=== PATIENT | male | born 1985 | race Caucasian/White ===

== ENCOUNTER 2016-10-23 14:38 | Inpatient (IN) | payer BC, OTHER ==
[~2016-10-23] VITALS: Ht 182.9 cm; Wt 90.7 kg
[2016-10-23 16:16] VITALS: BP 119/64
[2016-10-23] MEDS ORDERED: MAG HYDROX/AL HYDROX/SIMETH 30 ML LIQUID UDC PO PRN (16:45)
[2016-10-23] MEDS ORDERED: IBUPROFEN 600 MG TABLET PO PRN (16:45)
[2016-10-23] MEDS ORDERED: LOPERAMIDE HCL 2 MG CAPSULE PO PRN ×2 (16:45)
[2016-10-23] MEDS ORDERED: MIRALAX 17 GM POWD.PACK PO PRN (16:45)
[2016-10-23] MEDS ORDERED: BUPRENORPHINE HCL 2 MG TAB.SUBL SL PRN (16:45)
[2016-10-23] MEDS ORDERED: CLONIDINE HCL 0.1 MG TABLET PO PRN (16:45)
[2016-10-23] MEDS ORDERED: ACETAMINOPHEN 325 MG TABLET PO PRN ×2 (16:45→17:45)
[2016-10-23] MEDS ORDERED: DICYCLOMINE HCL 20 MG TABLET PO PRN (16:45)
[2016-10-23] MEDS ORDERED: ONDANSETRON 4 MG/2 ML VIAL IM PRN (16:45)
[2016-10-23] MEDS ORDERED: ONDANSETRON ODT 4 MG TAB.RAPDIS SL PRN (16:45)
[2016-10-23] MEDS ORDERED: MAGNESIUM HYDROXIDE 30 ML LIQUID UDC PO PRN (16:45)
[2016-10-23 17:05] LABS: *AMPHETAMINE, URINE POSITIVE (NEGATIVE); *BARBITURATE, URINE POSITIVE (NEGATIVE); *CANNABINOID, URINE NEGATIVE (NEGATIVE); *COCCAINE, URINE POSITIVE (NEGATIVE); *OPIATE, URINE POSITIVE (NEGATIVE); *PHENCYCLIDINE SCREEN,URINE NEGATIVE (NEGATIVE)
[2016-10-23 17:24] LABS: BASOPHILS # (AUTO) 0.1 K/uL (0.0-8.0); EOSINOPHILS # (AUTO) 0.2 K/uL (0.0-0.7); EOSINOPHILS % (AUTO) 2.4 % (0.0-7.0); HEMATOCRIT 39.1 % (36.7-47.1); HEMOGLOBIN 13.4 g/dL (12.5-16.3); LYMPHOCYTES # (AUTO) 2.4 K/uL (20.0-40.0); LYMPHOCYTES % (AUTO) 34.8 % (20.5-51.5); MEAN CORPUSCULAR HEMOGLOBIN 31.2 uug (23.8-33.4); MEAN CORPUSCULAR HGB CONC 34 g/dL (32.5-36.3); MEAN CORPUSCULAR VOLUME 91.1 fL (73.0-96.2); MONOCYTES # (AUTO) 0.6 K/uL (2.0-10.0); MONOCYTES % (AUTO) 8.9 % (0.0-11.0); NEUTROPHILS # (AUTO) 3.5 K/uL (1.8-8.9); NEUTROPHILS % (AUTO) 52.9 % (38.5-71.5); PLATELET COUNT (AUTO) 266 K/uL (152-348); WHITE BLOOD COUNT (AUTO) 6.8 K/uL (3.6-10.2)
[2016-10-23 17:30] LABS: ETHANOL < 3 MG/DL (0-0)
--- NOTE | 2016-10-23 17:30 | NUR ---
ADMISSION Pt 33 y/o male admitted for heroin methamphetamine dependence. Pt alert and oriented to name, place, and time. Perrla. Skin warm and dry to touch. Respirations even and unlabored. Bilateral hand tremors noted slightly. Pt irritable during assessment. Pt noted with pressured speech at times during conversation. Pt also noted with eyes slightly closing at times during conversation. Pt also appears slighty disheveled. Initial cows=2. AQ=885/64 P=83 O2=95% @RA R=18 T=98.3 pain=0/10. Dr. Hernandez aware of admission with new orders for prn subutex per MD order for today. Pt oriented to room and unit. NKA. Pt states has no PCP. Full code. Regular diet. Bed on lowest position with side rails x2 up for safety. Call light within reach. substance hx: - HEROIN iv 1-2gm daily x2 months, last used on 10/23/16 @1100 0.5gm ( 13-14years total) - METHAMPHETAMINE iv 0.5gm daily x 2-3 weeks, last used on 10/22/16 0.5gm ( 8 years total) Pt denies any medical history and also denies any history of sz. tx hx: [facility] 06/2016
[2016-10-23 17:36] LABS: ALANINE AMINOTRANSFERASE 26 U/L (16-63); ALBUMIN 3.6 g/dL (3.4-5.0); ALKALINE PHOSPHATASE 63 U/L (50-136); ASPARTATE AMINOTRANSFERASE 25 U/L (15-37); BILIRUBIN,TOTAL 0.8 mg/dL (0.2-1.0); CALCIUM 8.9 mg/dL (8.5-10.1); CARBON DIOXIDE 31 mmol/L (21-32); CHLORIDE 102 mmol/L (98-107); CREATININE 1.1 mg/dL (0.6-1.3); GFR 78 mL/min (>60); GLUCOSE 114 mg/dL (74-106); MAGNESIUM 2.3 mg/dL (1.8-2.4); SODIUM SERUM 141 mmol/L (136-145); TOTAL PROTEIN, SERUM 7.1 g/dL (6.4-8.2); UREA NITROGEN, BLOOD 12 mg/dL (7-18)
[2016-10-23 18:05] LABS: HIV-1 p24 ANTIGEN NON REACTIVE (NONREACTIVE); HIV-1/2 ANTIBODY NON REACTIVE (NONREACTIVE)
[2016-10-23 18:35] LABS: THYROID STIMULATING HORMONE 0.479 mIU/mL (0.358-3.740)
--- NOTE | 2016-10-23 19:00 | NUR ---
START OF SHIFT Patient endorsed by day shift nurse in stable condition. SBAR Report received. Patient is a 33 years old male admitted to [facility] on 10/23/16 for Opioid Dependence and placed on PRN Subutex Taper from 10/23/16. NKA, Regular Diet, Full Code, Fall Precautions. No History of Seizures. No Medical History. Substance Use: Heroin IV : "1-2 gram x 2 months. Last used on 10/22/16 at 11:00: 0,5 gram". Methamphetamine IV: "0.5 gram x 2-3 weeks. . Last used on 10/22/16: 0,5 gram". Recent Hospitalizations/Treatment History: "[facility]" on 07/16. Patient is in the bed , in his room. COWS 2 's anxious. Patient denies N/V, and diarrhea now, Patient denies stomach cramps. Upon assessment patient is alert and oriented x4. Speech is clear and soft. VS: T:98'6; BP: 110/52; HR: 81; RR:19; RA O2SAT: 99%. Pain level : "0/10. Face is symmetrical. PERRLA. Pupil's larger than normal size bilaterally. Ears WNL. Mouth's WNL. Lips are pink. Breathing is even and unlabored. Lungs are clear bilaterally. BS's active in all x4 quadrants, abdomen is soft. Skin is intact, warm and moist by touch. Safety measures by hospital policy: Call light within reach; Bed in lowest position and locked; padded rails up x2. All needs met. Will continue to monitor closely.
[2016-10-23 20:00] VITALS: BP 110/52
[2016-10-23] MEDS ORDERED: LORAZEPAM 2 MG/1 ML VIAL IM PRN (23:45)
[2016-10-23] MEDS ORDERED: DIAZEPAM 10 MG TABLET PO PRN ×2 (23:45)
[2016-10-23] MEDS ORDERED: DIAZEPAM 5 MG TABLET PO PRN (23:45)
[2016-10-24] VITALS: BP 101/56
[2016-10-24 04:00] VITALS: BP 113/66
--- NOTE | 2016-10-24 07:07 | NUR ---
END OF SHIFT Patient is a 33 years old male admitted to [facility] on 10/23/16 for Opioid Dependence and placed on 5 day Subutex and 3 day Valium Taper. NKA, Regular Diet, Full Code, Fall Precautions. No History of Seizures. Past Medical History: Anxiety disorder, Asthma, mild-intermittent; Chronic tobacco use; Opioid use disorder; Sedative hypnotic use disorder; Alcohol use disorder; Stimulant use disorder; Cocaine use disorder; Herpes simplex virus, type 2 with current outbreak. Substance Use: Heroin IV : "1-2 gram x 2 months. Last used on 10/22/16 at 11:00: 0,5 gram". Methamphetamine IV: "0.5 gram x 2-3 weeks. Last used on 10/22/16: 0,5 gram". Recent Hospitalizations/Treatment History: "[facility]" on 07/16. 04:00: COWS 2. Patient present with increased anxiety. VS: T:98'3; BP: 113/66; HR: 66; RR:16; RA O2SAT: 97%. Pain level : "0/10". Skin is intact, warm and dry by touch. No PRN Medications given last night. Patient slept 7 hours; Intake 795 ml; Voided x1. Safety measures by hospital policy: Call light within reach; Bed in lowest position and locked; padded rails up x2. All needs met. Patient endorsed to day shift nurse in stable condition. SBAR Report given.
[2016-10-24 08:00] VITALS: BP 132/74
--- NOTE | 2016-10-24 08:00 | NUR ---
START OF SHIFT Pt 31 y/o male admitted for herion methamphetamine dependence. Pt received in room with eyes closed resting but easily arousable to name. Pt alert and oriented to name, place, and time. Perrla. Skin warm and moist to touch. Perspiration noted on face. Pt observed yawning during conversation. Pt appeared irritable at times. It was reported that pt slept for 7 hours last night. Bed on lowest position with side rails x2 up for safety. Call light within reach. No distress noted at this time.
[2016-10-24] MEDS ORDERED: TUBERCULIN,PURIF.PROT.DERIV. 5 TU/0.1 ML TEST ID ONE (09:00)
[2016-10-24] MEDS: BUPRENORPHINE HCL 2 MG TAB.SUBL SL SCH ×4 (09:33→20:50)
[2016-10-24] MEDS: MULTIVITAMINS,THERAPEUTIC TABLET PO SCH (09:33)
[2016-10-24] MEDS: VALACYCLOVIR HCL 500 MG TABLET PO SCH ×2 (09:34→20:50)
--- NOTE | 2016-10-24 11:00 | NUR ---
CLARRIFICATION Substance history clarification. Pt stated for alprazolam, " it's been a couple of weeks since I took it." Pt also stated , " it's been a couple of weeks," when asked when was the last time he used cocaine. Pt was also unsure of the dose/ frequency.
[2016-10-24 12:00] VITALS: BP 121/65
[2016-10-24 16:00] VITALS: BP 128/69
--- NOTE | 2016-10-24 17:10 | NUR ---
NSG ENTRY Pt was asked to wait for medications. When I returned with the medication, pt went to [facility].
--- NOTE | 2016-10-24 17:50 | NUR ---
NSG ENTRY Pt was asked to return to unit to received medication, but refused and wanted to go to the patio before coming to the unit.
--- NOTE | 2016-10-24 18:02 | NUR ---
NSG ENTRY Pt still in patio.
--- NOTE | 2016-10-24 18:12 | NUR ---
NSG ENTRY Pt still in patio even when asked to return to unit for medication. Pt still remains in patio.
--- NOTE | 2016-10-24 18:17 | NUR ---
END OF SHIFT Pt 31 y/o male admitted for herion methamphetamine dependence.Pt alert and oriented to name, place, and time. Perrla. Skin warm and moist to touch. Perspiration noted on face. Pt appeared irritable at times. Pt was observed mostly in room today. Pt medication compliant and tolerated well. No ASE noted. Bed on lowest position with side rails x2 up for safety. Call light within reach. No distress noted at this time.
[2016-10-24 20:00] VITALS: BP 127/65
--- NOTE | 2016-10-24 20:00 | NUR ---
START OF SHIFT NOTE RECEIVED PATIENT IN THE ROOM , RESTING . PATIENT ALERT AND ORIENTED X 4. RESPIRATION EVEN AND UNLABORED. PATIENT REPORTS ANXIOUS, SWEATING, NOTED YAWNING. DENIES ANY PAIN. NO N/V. PATIENT DID NOT ATTEND ANY GROUPS, ENCOURAGED. PATIENT IS A 31 YEAR OLD MALE, ADMITTED FOR HEROIN/METH DEPENDENCE. PATIENT IS ON 1ST DAY OF HIS 5 DAYS SUBUTEX TAPER . PATIENT DID NOT REQUIRE ANY PRN MEDICATION DURING THE DAY. LAST COWS 5 AND CIWA 4. PATIENT IS ON VALTREX FOR HERPES SIMPLEX VIRUS, TYPE 2, NO ADVERSE REACTION NOTED. ENCOURAGE FLUIDS. ON FALL PRECAUTION. SAFETY MEASURES IN PLACE. CALL LIGHT IN REACH. WILL CONTINUE TO MONITOR.
[2016-10-24] MEDS ORDERED: DIAZEPAM 5 MG TABLET PO PRN (21:30)
[2016-10-24] MEDS ORDERED: DIAZEPAM 10 MG TABLET PO PRN ×2 (21:30)
[2016-10-25] VITALS: BP 110/57
[2016-10-25 04:00] VITALS: BP 107/64
--- NOTE | 2016-10-25 07:44 | NUR ---
END OF SHIFT NOTE MONITORED PATIENT THROUGHOUT THE SHIFT. PATIENT ALERT AND ORIENTED X 4. RESPIRATION EVEN AND UNLABORED. PATIENT COMPLIANT WITH MEDICATIONS. PATIENT DID NOT ATTEND GROUPS, ENCOURAGED. CONTINUE ON SUBUTEX TAPER ORDERED , TOLERATED WELL AND NO ADVERSE REACTION. PATIENT REPORTED ANXIETY, SWEATING AND YAWNING. NO N/V. DENIES ANY PAIN. PATIENT DID NOT REQUIRE ANY PRN MEDICATION DURING SHIFT. PATIENT SLEPT 5 HOURS. FLUID INTAKE 1,355 ML. VOIDED X 4. NO BM. LAST CIWA 1 AND COWS 1.
[2016-10-25 08:00] VITALS: BP 124/67
--- NOTE | 2016-10-25 08:00 | NUR ---
START OF SHIFT Pt 31 y/o male admitted for heroin methamphetamine dependence. Pt received in room with eyes closed resting but easily arousable to name. Pt alert and oriented to name, place, and time. Perrla. Skin warm and moist to touch. Perspiration noted on face. Pt observed yawning during conversation. Pt appeared irritable at times. It was reported that pt slept for 5 hours last night. Bed on lowest position with side rails x2 up for safety. Call light within reach. No distress noted at this time.
[2016-10-25] MEDS: BUPRENORPHINE HCL 2 MG TAB.SUBL SL SCH ×3 (08:40→21:45)
[2016-10-25] MEDS: VALACYCLOVIR HCL 500 MG TABLET PO SCH ×2 (08:40→21:45)
[2016-10-25] MEDS: MULTIVITAMINS,THERAPEUTIC TABLET PO SCH (08:40)
[2016-10-25 12:00] VITALS: BP 119/66
[2016-10-25 13:25] LABS: HCV AB >11.0 s/co ratio (0.0-0.9); HEPATITIS B CORE AB, IgM Negative (Negative); HEPATITIS B SURFACE AG Negative (Negative)
[2016-10-25 16:00] VITALS: BP 132/73
--- NOTE | 2016-10-25 18:30 | NUR ---
END OF SHIFT Pt 31 y/o male admitted for herion methamphetamine dependence.Pt alert and oriented to name, place, and time. Perrla. Skin warm and moist to touch. Pt with periods of irritability at times throughout the day. Pt was observed mostly in room and patio today. Pt medication compliant and tolerated well. No ASE noted. Bed on lowest position with side rails x2 up for safety. Call light within reach. No distress noted at this time.
--- NOTE | 2016-10-25 19:30 | NUR ---
START OF SHIFT NOTE : Pt 31 y/o male admitted for heroin methamphetamine dependence. Pt received in room with , Pt alert and oriented to name, place, and time. Perrla. Skin warm and moist to touch. Pt appeared irritable at times. No distress noted at this time. Pt, placed on 5 days Subutex taper on 10/24/2016, Valium PRN. PATIENT IS ON VALTREX FOR HERPES SIMPLEX VIRUS, TYPE 2, NO ADVERSE REACTION NOTED. ENCOURAGE FLUIDS. ON FALL PRECAUTION. Safety measures in place : bed on lowest position with side rails x2 up for safety, call light within reach. Will continue to monitor closely and offer help.
[2016-10-25 20:00] VITALS: BP 118/65
--- NOTE | 2016-10-25 21:00 | NUR ---
PRN VISTARIL, BENADRYL, ROBAXIN Pt. complains of increased level of anxiety, Sleeplessness, mild muscle spasm. PRN VISTARIL, BENADRYL, ROBAXIN given as ordered. Safety measures in place : bed on lowest position with side rails x2 up for safety, call light within reach. Will continue to monitor closely and offer help.
[2016-10-25] MEDS: diphenhydrAMINE 50 MG CAPSULE PO PRN (21:45)
[2016-10-25] MEDS: HYDROXYZINE PAMOATE 25 MG CAPSULE PO PRN (21:45)
[2016-10-25] MEDS: METHOCARBAMOL 750 MG TABLET PO PRN (21:45)
--- NOTE | 2016-10-25 21:55 | NUR ---
REASSESSMENT DERICK CHOE ROBAXIN Pt. is sleeping, RR=16, unlabored and even. Safety measures in place : bed on lowest position with side rails x2 up for safety, call light within reach. Will continue to monitor closely and offer help.
--- NOTE | 2016-10-26 06:54 | NUR ---
END OF SHIFT NOTE : Patient is a 31 years old male admitted to [facility] on 10/23/16 for Opioid Dependence and placed on 5 day Subutex and 3 day Valium Taper. NKA, Regular Diet, Full Code, Fall Precautions. No History of Seizures. Skin warm and moist to touch. Pt appeared irritable at times. No distress noted at this time. Pt, placed on 5 days Subutex taper on 10/24/2016, Valium PRN. PATIENT IS ON VALTREX FOR HERPES SIMPLEX VIRUS, TYPE 2, NO ADVERSE REACTION NOTED. ENCOURAGE FLUIDS. ON FALL PRECAUTION. Pt remains compliant with the treatment plan. PRN VISTARIL, BENADRYL, ROBAXIN were given during my shift. V/S remain WNL. RR=16, even and unlabored, lungs clear upon auscultation, abdomen soft and non- distended. Pt denies nausea, vomiting and diarrhea. LAST CIWA=2 ,COWS=2 at 0400 , INTAKE= 972 ml, voided x 1, slept 6 hours. Safety measures in place : bed on lowest position with side rails x2 up for safety, call light within reach. Will continue to monitor closely and offer help.
[2016-10-26 08:00] VITALS: BP 124/63
--- NOTE | 2016-10-26 08:20 | NUR ---
START OF SHIFT: RECEIVED PT A/O X 4 LAYING IN BED. HE PRESENTS WITH GUARDED AFFECT AND IRRITABLE MOOD. HE STATES HE FEELS ANXIOUS AND IRRITABLE AND SLEPT RESTLESS LAST NIGHT. SUBUTEX TAPER IN PROGRESS. COWS 4. HE STATES HE WOULD LIKE TO REST THIS AM HE STILL FEELS FATIGUED. ENCOURAGED INCREASED FLUIDS. WILL CONTINUE TO MONITOR AND OFFER SUPPORT.
[2016-10-26] MEDS ORDERED: BUPRENORPHINE HCL 2 MG TAB.SUBL SL SCH (09:00)
[2016-10-26] MEDS: VALACYCLOVIR HCL 500 MG TABLET PO SCH ×2 (09:06→21:00)
[2016-10-26] MEDS: MULTIVITAMINS,THERAPEUTIC TABLET PO SCH (09:06)
[2016-10-26 12:00] VITALS: BP 122/67
[2016-10-26] MEDS: BUPRENORPHINE HCL 2 MG TAB.SUBL SL SCH ×2 (14:55→21:00)
[2016-10-26 16:00] VITALS: BP 118/68
--- NOTE | 2016-10-26 18:40 | NUR ---
END OF SHIFT: PT CONTINUES ON SUBUTEX TAPER. LAST COWS 2.HE C/O MILD ANXIETY AND BODY ACHES THIS AM BUT STATES HE FELT BETTER DAY PROGRESSED. HE STATES DETOX MEDS ARE EFFECTIVE. DISCUSSED AND EDUCATED PT ON HCV DIAGNOSIS. PT ATTENDED GROUPS AND INTERACTED WITH PEERS. NO PRNS GIVEN ON THIS SHIFT. WILL PASS REPORT TO ONCOMING NIGHT NURSE.
[2016-10-26 20:00] VITALS: BP 115/67
[2016-10-26] MEDS: diphenhydrAMINE 50 MG CAPSULE PO PRN (21:50)
[2016-10-26] MEDS: HYDROXYZINE PAMOATE 25 MG CAPSULE PO PRN (21:50)
[2016-10-26] MEDS: METHOCARBAMOL 750 MG TABLET PO PRN (21:50)
--- NOTE | 2016-10-27 07:16 | NUR ---
END OF SHIFT NOTE : justin is a 31 years old male admitted to [facility] on 10/23/16 for Opioid Dependence and placed on 5 day Subutex and 3 day Valium Taper. NKA, Regular Diet, Full Code, Fall Precautions. No History of Seizures. Skin warm and moist to touch. Pt appeared irritable at times. No distress noted at this time. Pt, placed on 5 days Subutex taper on 10/24/2016, Valium PRN. PATIENT IS ON VALTREX FOR HERPES SIMPLEX VIRUS, TYPE 2, NO ADVERSE REACTION NOTED. ENCOURAGE FLUIDS. ON FALL PRECAUTION. Pt remains compliant with the treatment plan. PRN VISTARIL, BENADRYL, ROBAXIN were given during my shift. V/S remain WNL. RR=16, even and unlabored, lungs clear upon auscultation, abdomen soft and non- distended. Pt denies nausea, vomiting and diarrhea. LAST CIWA=2 ,COWS=3 at 0400 , INTAKE= 1091 ml, voided x 1, slept 6 hours. Safety measures in place : bed on lowest position with side rails x2 up for safety, call light within reach. Will continue to monitor closely and offer help.
--- NOTE | 2016-10-27 07:55 | NUR ---
START OF SHIFT NOTE Received report from night nurse, 31 year old male admitted for Opioid/ Methamphetamine dependence. NKA, Regular Diet, Full Code, Fall Precautions. Pt cont with 5 day Subutex and 3 day Valium Taper, and on Valtrex for Herpes Simplex Virus type 2. Pt received PRN Vistaril/ Benadryl /Robaxin effective per night nurse. Last CIWA-2, COWS-3, slept for 6 hours. Received pt alert awake oriented x4. Breathing normal respiration even and unlabored, lungs clear upon auscultation, abdomen soft and non- distended. Pt denies nausea,vomiting and diarrhea. Safety measures in place bed on lowest position with side rails x2 up for safety, call light within reach. Will continue to monitor.
[2016-10-27 08:00] VITALS: BP 113/64
[2016-10-27] MEDS: MULTIVITAMINS,THERAPEUTIC TABLET PO SCH (08:31)
[2016-10-27] MEDS: VALACYCLOVIR HCL 500 MG TABLET PO SCH ×2 (08:33→21:13)
[2016-10-27] MEDS: BUPRENORPHINE HCL 2 MG TAB.SUBL SL SCH ×3 (08:34→21:12)
[2016-10-27 12:00] VITALS: BP 118/68
[2016-10-27 16:00] VITALS: BP 115/66
--- NOTE | 2016-10-27 19:02 | NUR ---
END OF SHIFT NOTE Gave report to night nurse, 26 year old male admitted for Opiate dependence. Regular diet with no known food and drug allergies. Full Code status. Pt with past medical history of Anxiety, Depression, ADD & Hx of Seizure(October 2015). Patient is on a Seizure and Fall precaution. Pt noted with scratches & scabs on BUE & BLE from scratching and picking. Pt is on a 5-day Subutex taper and PRN Ativan for withdrawals. Pt did not receive any PRN medication during shift, COWS-2 CIWA 2, Pt's total intake 2611ml, Voided x5x1 BM. Vital signs remained stable. Pt attended groups and activities. Safety measures in place bed on lowest position with side rails x2 up for safety, call light within reach. Pt endorse pt to night nurse in stable condition. Addendum: 10/27/16 at 1927 by TAISHA ACOSTA LVN WRONG PT CHARTING
--- NOTE | 2016-10-27 19:28 | NUR ---
END OF SHIFT NOTE Gave report to night nurse, 31 year old male admitted for Opioid/ Methamphetamine dependence. NKA, Regular Diet, Full Code, Fall Precautions. Pt cont with 5 day Subutex and 3 day Valium Taper, and on Valtrex for Herpes Simplex Virus type 2. Pt did not receive any PRN medication during shift. Last CIWA 2, COWS-2. Pt's total intake 2611ml, Voided x5x1 BM. Vital signs remained stable. Pt attended groups and activities. Safety measures in place bed on lowest position with side rails x2 up for safety, call light within reach. Pt endorse pt to night nurse in stable condition.
[2016-10-27 20:00] VITALS: BP 114/64
[2016-10-27] MEDS: diphenhydrAMINE 50 MG CAPSULE PO PRN (21:12)
[2016-10-27] MEDS: METHOCARBAMOL 750 MG TABLET PO PRN (21:12)
[2016-10-27] MEDS: HYDROXYZINE PAMOATE 25 MG CAPSULE PO PRN (21:12)
--- NOTE | 2016-10-28 06:46 | NUR ---
END OF SHIFT NOTE : Patient is a 31 years old male admitted to [facility] on 10/23/16 for Opioid Dependence and placed on 5 day Subutex and PRN Valium Taper. NKA, Regular Diet, Full Code, Fall Precautions. No History of Seizures. Skin warm and moist to touch. Pt appeared irritable at times. No distress noted at this time. PATIENT IS ON VALTREX FOR HERPES SIMPLEX VIRUS, TYPE 2, NO ADVERSE REACTION NOTED. ENCOURAGE FLUIDS. ON FALL PRECAUTION. Pt remains compliant with the treatment plan. PRN VISTARIL, BENADRYL, ROBAXIN were given during my shift. V/S remain WNL. RR=16, even and unlabored, lungs clear upon auscultation, abdomen soft and non- distended. Pt denies nausea, vomiting and diarrhea. LAST CIWA=2 ,COWS=2 at 0400 , INTAKE= 1900 ml, voided x 3, slept 6 hours. Safety measures in place : bed on lowest position with side rails x2 up for safety, call light within reach. Will continue to monitor closely and offer help.
--- NOTE | 2016-10-28 07:50 | NUR ---
START OF SHIFT NOTE Received report from night nurse, 31 year old male admitted for Opioid/ Methamphetamine dependence. NKA, Regular Diet, Full Code, Fall Precautions. Pt cont with 5 day Subutex and 3 day Valium Taper, and on Valtrex for Herpes Simplex Virus type 2. Pt received PRN Vistaril/ Benadryl /Robaxin effective per night nurse. Last CIWA-2, COWS-2, slept for 6 hours. Received pt alert awake oriented x4. Breathing normal respiration even and unlabored, lungs clear upon auscultation, abdomen soft and non- distended. Pt denies nausea,vomiting and diarrhea. Educate the pt with plan of the day and medication regimen, With good verbal understanding. Safety measures in place bed on lowest position with side rails x2 up for safety, call light within reach. Will continue to monitor.
[2016-10-28 08:00] VITALS: BP 106/62
[2016-10-28] MEDS: VALACYCLOVIR HCL 500 MG TABLET PO SCH ×2 (08:46→20:55)
[2016-10-28] MEDS: MULTIVITAMINS,THERAPEUTIC TABLET PO SCH (08:46)
[2016-10-28] MEDS: BUPRENORPHINE HCL 2 MG TAB.SUBL SL SCH ×2 (08:48→20:56)
[2016-10-28 12:00] VITALS: BP 121/69
[2016-10-28 16:00] VITALS: BP 116/68
--- NOTE | 2016-10-28 18:57 | NUR ---
END OF SHIFT NOTE Gave report to night nurse, 31 year old male admitted for Opioid/ Methamphetamine dependence. NKA, Regular Diet, Full Code, Fall Precautions. Pt cont with 5 day Subutex and 3 day Valium Taper, and on Valtrex for Herpes Simplex Virus type 2. Pt did not receive any PRN medication during shift. Last CIWA 1, COWS-1. Pt's total intake 3973ml, Voided x5, x1 BM. Vital signs remained stable. Pt attended groups and activities. Safety measures in place bed on lowest position with side rails x2 up for safety, call light within reach. Pt endorse pt to night nurse in stable condition.
--- NOTE | 2016-10-28 19:20 | NUR ---
START OF SHIFT NOTE : Pt 31 y/o male admitted for heroin methamphetamine dependence. Pt received in room with , Pt alert and oriented to name, place, and time. Perrla. Skin warm and moist to touch. Pt appeared irritable at times. No distress noted at this time. Pt, placed on 5 days Subutex taper on 10/24/2016, Valium PRN. PATIENT IS ON VALTREX FOR HERPES SIMPLEX VIRUS, TYPE 2, NO ADVERSE REACTION NOTED. ENCOURAGE FLUIDS. ON FALL PRECAUTION. Last CIWA=1, COWS=1 at 17:00. Safety measures in place : bed on lowest position with side rails x2 up for safety, call light within reach. Will continue to monitor closely and offer help.
[2016-10-28 20:00] VITALS: BP 109/63
[2016-10-28] MEDS: diphenhydrAMINE 50 MG CAPSULE PO PRN (20:56)
[2016-10-28] MEDS: HYDROXYZINE PAMOATE 25 MG CAPSULE PO PRN (20:56)
[2016-10-28] MEDS: METHOCARBAMOL 750 MG TABLET PO PRN (20:56)
--- NOTE | 2016-10-29 06:49 | NUR ---
END OF SHIFT NOTE : Patient is a 31 years old male admitted to [facility] on 10/23/16 for Opioid , he completed 5 day Subutex and PRN Valium Taper. NKA, Regular Diet, Full Code, Fall Precautions. No History of Seizures. Skin warm and moist to touch. Pt appeared irritable at times. No distress noted at this time. PATIENT IS ON VALTREX FOR HERPES SIMPLEX VIRUS, TYPE 2, NO ADVERSE REACTION NOTED. ENCOURAGE FLUIDS. ON FALL PRECAUTION. Pt remains compliant with the treatment plan. PRN VISTARIL, BENADRYL, ROBAXIN were given during my shift. V/S remain WNL. RR=16, even and unlabored, lungs clear upon auscultation, abdomen soft and non- distended. Pt denies nausea, vomiting and diarrhea. LAST CIWA=1 ,COWS=1 at 0400 , INTAKE= 1210 ml, voided x 1, slept 7 hours. Safety measures in place : bed on lowest position with side rails x2 up for safety, call light within reach. Will continue to monitor closely and offer help.
--- NOTE | 2016-10-29 07:47 | NUR ---
BEGINNING OF SHIFT Patient endorsement report received from design specialist nurse, all pertinent information discussed. Patient with admitting Dx: OPIATE Dependence Patient completed 5 day Subutex taper as ordered, well tolerated, no ASe noted. , Patient slept for 7 hours, with last ciwa score of: 1. Patient received PRN: Vistaril, Benadryl, and Robaxin during design specialist, per design specialist medications were effective. Fall and seizure precautions observed at all times. Patient received awake, alert and oriented x4, educated regarding plan of care for the day and medication regimen with good verbal understanding. will continue to monitor closely. safety measures in place. call light with in reach.
[2016-10-29 08:30] VITALS: BP 108/60
[2016-10-29] MEDS: MULTIVITAMINS,THERAPEUTIC TABLET PO SCH (08:35)
[2016-10-29] MEDS: VALACYCLOVIR HCL 500 MG TABLET PO SCH ×2 (08:35→22:02)
[2016-10-29] MEDS ORDERED: BUPRENORPHINE HCL 2 MG TAB.SUBL SL SCH (09:00)
[2016-10-29 13:19] VITALS: BP 114/69
[2016-10-29 14:45] LABS: *AMPHETAMINE, URINE NEGATIVE (NEGATIVE); *BARBITURATE, URINE POSITIVE (NEGATIVE); *CANNABINOID, URINE NEGATIVE (NEGATIVE); *COCCAINE, URINE NEGATIVE (NEGATIVE); *OPIATE, URINE NEGATIVE (NEGATIVE); *PHENCYCLIDINE SCREEN,URINE NEGATIVE (NEGATIVE)
[2016-10-29 17:00] VITALS: BP 112/70
[2016-10-29] MEDS ORDERED: VALA500T PO (17:06)
[2016-10-29] MEDS ORDERED: Ibuprofen PO (17:06)
[2016-10-29] MEDS ORDERED: METH-33 PO (17:06)
[2016-10-29] MEDS ORDERED: DIPH50CA37 PO (17:06)
[2016-10-29] MEDS ORDERED: DICY20TA28 PO (17:06)
--- NOTE | 2016-10-29 19:04 | NUR ---
END OF SHIFT Patient with admitting Dx: Opiate/methamphetamine dependance and completed Valium and Subutex taper as ordered, completed detox tapers as ordered, well tolerated, no ASE noted. Patient encouraged adequate PO fluid intake as tolerated. 0900 patient presented withheld bone and joint aches, moist eyes and mild anxiety with faina score of: 1 and cow score of: 3. 1300 assessment patient presented with: mild anxiety with cow score of: 1 and ciwa score of: 1. 1700 assessment patient presented with:: mild anxiety with cow score of: 1 and ciwa score of: 1. Detox medication effective at reducing withdrawal symptoms. Patient encouraged to attend group therapies/sessions to learn new coping skills to prevent relapse, noted attending and participating. patient denies SI/HI. Administered no PRNs during shift. Patient is scheduled to be discharged tomorrow, noted self motivated towards sobriety. Safety measures in place. call light kept with in reach. Patient endorsed to mini shifter nurse, all pertinent information discussed.
--- NOTE | 2016-10-29 19:11 | NUR ---
Start of shift note Received report from day shift nurse. Pt is a 31 yo male, A+Ox4, presenting to [facility] for Opiate/Meth dependence. Pt has NKA, is Full Code status, and on Regular diet. Pt is on Fall Precautions. Pt has HX of Anxiety and Herpes Simplex type 2. Pt has completed 5 day Subutex taper, tolerated well, and is due for discharge tomorrow. No s/s of distress noted at this time. Respirations even and unlabored. Will continue to monitor.
[2016-10-29 20:35] VITALS: BP 132/71
[2016-10-29] MEDS: diphenhydrAMINE 50 MG CAPSULE PO PRN (22:13)
[2016-10-29] MEDS: HYDROXYZINE PAMOATE 25 MG CAPSULE PO PRN (22:13)
--- NOTE | 2016-10-29 22:13 | NUR ---
PRN Benadryl and Vistaril Pt c/o inability to sleep and Anxiety and requested for PRN Benadryl and Vistaril. Medications given and tolerated well. Will reassess within 1 HR. Will continue to monitor.
--- NOTE | 2016-10-29 23:10 | NUR ---
PRN Benadryl and Vistaril Reassessment Medications effective. Pt shows s/s of reduction in Anxiety and is resting well in bed. No s/s of ASE/ distress noted at this time. Respirations even and unlabored. Will continue to monitor.
[2016-10-30 00:21] VITALS: BP 124/76
[2016-10-30 04:03] VITALS: BP 128/71
--- NOTE | 2016-10-30 07:15 | NUR ---
Discharge note Pt was discharged from facility @0715. Pt left in stable condition with V/S WNL and all belongings returned to patient. ID band removed.
[2016-11-07 14:12] LABS: *AMOBARBITAL Negative (Cutoff=200); *AMPHETAMINE Positive (.); *BUTALBITAL Negative (Cutoff=200); *COCAINE Positive (.); *CODEINE Positive (.); *HYDROMORPHONE Negative (Cutoff=300); *METHAMPHETAMINE Positive (.); *OPIATES Positive ng/mL (Cutoff=300); *PENTOBARBITAL Negative (Cutoff=200); *PHENOBARBITAL Positive (.); *SECOBARBITAL Negative (Cutoff=200)
== END 2016-10-30 07:20 | disposition home or self-care (01) | DRG 895 ==
LOC: SRC 14:38 → EDBD 14:38 → SRC 10-24 11:01
PROVIDERS: ADMIT Internal Medicine; ATTEND Internal Medicine
PROC: HZ2ZZZZ Detoxification Services for Substance Abuse Treatment (ICD-10-PCS; principal; 2016-10-23)
PROC: HZ31ZZZ Individual Counseling for Substance Abuse Treatment, Behavioral (ICD-10-PCS; 2016-10-25)
PROC: HZ41ZZZ Group Counseling for Substance Abuse Treatment, Behavioral (ICD-10-PCS; 2016-10-26)
DX: F11.23 Opioid dependence with withdrawal (principal); F13.20 Sedative, hypnotic or anxiolytic dependence, uncomplicated; F10.10 Alcohol abuse, uncomplicated; Y90.9 Presence of alcohol in blood, level not specified; B19.20 Unspecified viral hepatitis C without hepatic coma; F15.220 Other stimulant dependence with intoxication, uncomplicated; F14.10 Cocaine abuse, uncomplicated; M43.22 Fusion of spine, cervical region; Z59.0 Homelessness; Z82.0 Family history of epilepsy and other diseases of the nervous system; Z80.9 Family history of malignant neoplasm, unspecified; A60.01 Herpesviral infection of penis; F17.210 Nicotine dependence, cigarettes, uncomplicated; J45.20 Mild intermittent asthma, uncomplicated; F41.9 Anxiety disorder, unspecified
CPT/HCPCS: 36415; 70030-TC; 80307; 80324; 80345; 80353; 80361; 83735; 84443; 85025; 86580; 86592; 86705; 86803; 87340; 87806; A4663; G6040-TC; Q0163